=== PATIENT | female | born 1965 | race Caucasian/White ===

== ENCOUNTER → 2016-09-29 | Outpatient (CLI) | payer OTHER ==
[~2016-09-29] MED LIST: BARIUM SULFATE 60% 355 ML SUSP PO ONE
--- NOTE | 2016-09-29 10:46 | RAD ---
Indication abdominal pain. A preliminary film of the abdomen, in anticipation of an upper GI and small bowel follow-through was performed. The preliminary film is unremarkable. 21 spot images were obtained associated with the examination. Fluoroscopy time associated with the study was 2.2 minutes. Initiation of swallowing was normal. The esophagus appeared normal. No esophageal strictures, erosions or mucosal abnormalities were seen. There was no significant hiatus hernia. The stomach appeared normal. The duodenal bulb appeared normal as did the remaining portion of the duodenum. The jejunum and ileum appeared normal. No constricting lesion mass or mucosal abnormality was seen. No strictured segment in the distal small bowel was seen. IMPRESSION: Normal upper GI and small bowel follow
== END | disposition home or self-care (01) ==
LOC: DXRAD 08:34
PROVIDERS: ATTEND Internal Medicine Gastroenterology
DX: R10.12 Left upper quadrant pain (principal); R10.32 Left lower quadrant pain
CPT/HCPCS: 74245

== ENCOUNTER → 2016-11-01 | Outpatient (CLI) | payer OTHER ==
[2016-11-01] MEDS: IOHEXOL 300 MG/ML 75 ML VIAL. IV ONE (09:54)
--- NOTE | 2016-11-01 10:38 | RAD ---
Indication chronic epigastric pain and left upper quadrant pain. CTA targeted to the abdominal aorta and its major branches was performed. MIP images were generated and reviewed. No prior CT imaging of the abdomen or pelvis is available. 75 cc of Omnipaque 300 was administered intravenously. No oral contrast was administered. An acute or significant finding at either lung base is not seen. There is likely some mild right hilar adenopathy. This is probably incidental. There is likely mild fatty infiltration of the liver. A focal mass lesion in the liver is not seen. The spleen appears unremarkable and the gallbladder appears grossly normal. No pancreatic abnormality is seen. No adrenal or renal anomalies are seen. A mass inflammatory process or acute finding in the abdomen is not seen. There are occasional diverticula seen associated with the large bowel. Active inflammation is not seen. A mass acute finding or significant finding in the pelvis is not apparent. The abdominal aorta appears unremarkable. There are single main renal arteries bilaterally which are widely patent. The celiac and SMA are widely patent. The ALFREDO is patent. IMPRESSION: No acute or significant finding seen in the abdomen or pelvis PQRS Compliance Statement: One or more of the following individualized dose reduction techniques were utilized for this examination: 1. Automated exposure control 2. Adjustment of the mA and/or kV according to patient size 3. Use of iterative reconstruction technique
== END | disposition home or self-care (01) ==
LOC: CT 08:45
PROVIDERS: ATTEND Internal Medicine Gastroenterology
DX: R10.12 Left upper quadrant pain (principal); M25.552 Pain in left hip
CPT/HCPCS: 74174; Q9967

== ENCOUNTER → 2017-09-27 | Outpatient (CLI) | payer OTHER ==
[~2017-09-27] MED LIST changes: -BARIUM SULFATE 60% 355 ML SUSP PO ONE; +IOHEXOL 240 MG/ML 50ML VIAL. ONE; +IOHEXOL 240 MG/ML 50ML VIAL. PO ONE; +IOHEXOL 300 MG/ML 75 ML VIAL. IV ONE
--- NOTE | 2017-09-27 13:35 | RAD ---
PQRS Compliance Statement: One or more of the following individualized dose reduction techniques were utilized for this examination: 1. Automated exposure control 2. Adjustment of the mA and/or kV according to patient size 3. Use of iterative reconstruction technique CT abdomen/pelvis with contrast 09/27/2017 1:00 PM INDICATION: Rectal pain and pressure COMPARISON: None available TECHNIQUE: Multiple axial CT images of the abdomen and pelvis were obtained after the intravenous administration of 75 mL Omnipaque 300. Coronal and sagittal reformats are provided. FINDINGS: Lung bases are clear. Heart size is within normal limits. The liver, spleen, bilateral adrenal glands, pancreas and gallbladder are normal in appearance. Abdominal aorta is normal in course and caliber. There are no pathologically enlarged lymph nodes in abdomen or pelvis. There is no free fluid or free intraperitoneal air. Kidneys enhance symmetrically. No suspicious renal mass is visualized. There is no hydronephrosis. Oral contrast was administered. Opacified bowel loops since her normal mucosal fold pattern. No suspicious abnormality is identified in the region of the anus, although evaluation by CT is limited this region a normal appendix is visualized. Urinary bladder is within normal limits given degree of distention. Uterus and adnexa appear normal. No suspicious osseous lesion is identified. IMPRESSION: No acute abnormality is identified in the abdomen and pelvis. Specifically, no inflammatory changes identified in the region of the rectum and anus. Electronically signed by: Kely Chau MD (09/27/2017 1:32 PM) [id number]
== END | disposition home or self-care (01) ==
LOC: CT 11:50
DX: K62.89 Other specified diseases of anus and rectum (principal)
CPT/HCPCS: 74177; Q9966; Q9967